=== PATIENT | male | born 1980 | race American Indian/Alaskan Native ===

== ENCOUNTER 2018-07-23 21:56 | Inpatient (IN) | payer OTHER ==
[2018-07-23 22:04] VITALS: BMI 29.7
[2018-07-23] MEDS ORDERED: Sodium Chloride 0.9% 1,000 ML IV STA (22:46)
--- NOTE | 2018-07-23 23:14 | ED PDOC ---
HPI: Abdomen Time Seen by Provider: 07/23/18 22:11 Chief Complaint (Nursing): Abdominal Pain Chief Complaint (Provider): Abdominal Pain History Per: Patient History/Exam Limitations: no limitations Onset/Duration Of Symptoms: Days (x1) Current Symptoms Are (Timing): Still Present Location Of Pain/Discomfort: RLQ Associated Symptoms: Vomiting. denies: Diarrhea Additional Complaint(s): Nuno Medina is a 37 year old male with a past medical history of hypertension who is presenting to the ED for evaluation of abdominal pain, onset earlier today. Patient states that he was evaluated by Dr. Norton at [facility] and was clinically diagnosed with gastritis. He reports that he was prescribed Percocet and Pantoprazole with no relief of symptoms. Patient describes the pain as sharp and constant with associated poor appetite and two episodes of vomiting but denies any diarrhea. PMD: Demetrio Garnett Past Medical History Reviewed: Historical Data, Nursing Documentation, Vital Signs Vital Signs: Last Vital Signs Temp 98.4 F 07/23/18 22:04 Pulse 64 07/23/18 22:04 Resp 16 07/23/18 22:04 BP 148/91 H 07/23/18 22:04 Pulse Ox 97 07/23/18 23:14 - Medical History PMH: HTN - Surgical History Surgical History: No Surg Hx - Family History Family History: States: CAD (mother) - Social History Current smoker - smoking cessation education provided: No Alcohol: None Drugs: Denies - Home Medications Home Medications: Ambulatory Orders Medication Instructions Recorded No Known Home Med 07/24/18 - Allergies Allergies/Adverse Reactions: Allergies Allergy/AdvReac Type Severity Reaction Status Date / Time No Known Allergies Allergy Verified 07/23/18 22:04 Review of Systems ROS Statement: Except As Marked, All Systems Reviewed And Found Negative Gastrointestinal: Positive for: Vomiting, Abdominal Pain. Negative for: Diarrhea Physical Exam - Reviewed Nursing Documentation Reviewed: Yes Vital Signs Reviewed: Yes - Physical Exam Appears: Positive for: Non-toxic, No Acute Distress Head Exam: Positive for: ATRAUMATIC, NORMAL INSPECTION, NORMOCEPHALIC Skin: Positive for: Normal Color, Warm, DRY Eye Exam: Positive for: EOMI, Normal appearance, PERRL ENT: Positive for: Normal ENT Inspection Neck: Positive for: Normal, Painless ROM Cardiovascular/Chest: Positive for: Regular Rate, Rhythm. Negative for: Murmur Respiratory: Positive for: Normal Breath Sounds. Negative for: Respiratory Distress Gastrointestinal/Abdominal: Positive for: Soft, Tenderness (right lower quadrant ). Negative for: Mass, Guarding, Rebound Back: Positive for: Normal Inspection. Negative for: L CVA Tenderness, R CVA Tenderness, Vertebral Tenderness Extremity: Positive for: Normal ROM. Negative for: Deformity, Swelling Neurologic/Psych: Positive for: Alert, Oriented. Negative for: Motor/Sensory Deficits - Laboratory Results Result Diagrams: 07/23/18 23:10 07/23/18 23:10 - ECG O2 Sat by Pulse Oximetry: 97 (RA) Pulse Ox Interpretation: Normal Medical Decision Making Medical Decision Making: Time: 22:43 Impression: 37 year old male with right lower quadrant tenderness Plan: --CT Abd/Pelvis --EKG --CMP --Lipase --ED Urine Dipstick --CBC --IV Fluids --Toradol 30 mg IVP --Blood Culture CT Abd/Pelvis: FINDINGS: Lung bases: Unremarkable. No mass. No consolidation. ABDOMEN: Liver: Unremarkable. No mass. Gallbladder and bile ducts: Unremarkable. No calcified stones. No ductal dilation. Pancreas: Unremarkable. No mass. No ductal dilation. Spleen: Unremarkable. No splenomegaly. Adrenals: Unremarkable. No mass. Kidneys and ureters: Unremarkable. No solid mass. No hydronephrosis. Stomach and bowel: Moderate amount of formed fecal material is seen within the large bowel loops which may be associated with constipation. No mucosal thickening. PELVIS: Appendix: There is enlargement up to 13 mm and peripheral enhancement of the mid to distal appendix with periappendiceal fat stranding present. A 6 x 7 mm appendicolith is seen within the mid appendix. Bladder: Unremarkable. No mass. Reproductive: Unremarkable as visualized. ABDOMEN and PELVIS: Intraperitoneal space: Unremarkable. No free air. No significant fluid collection. Bones/joints: No acute fracture. No dislocation. Soft tissues: Unremarkable. Vasculature: Unremarkable. No abdominal aortic aneurysm. Lymph nodes: Unremarkable. No enlarged lymph nodes. IMPRESSION: Acute appendicitis as described above. Patient will be admitted for further treatment of acute appendicitis. Efrne Sol made aware of case. Dr. Davis agrees to admission and surgical supply assistant made aware. Scribe Attestation: Documented by Indu Ledezma, acting as a scribe for Billy Damon MD. Provider Scribe Attestation: All medical record entries made by the Scribe were at my direction and personally dictated by me. I have reviewed the chart and agree that the record accurately reflects my personal performance of the history, physical exam, medical decision making, and the department course for this patient. I have also personally directed, reviewed, and agree with the discharge instructions and disposition. Disposition - Clinical Impression Clinical Impression: Acute appendicitis - Patient ED Disposition Is Patient to be Admitted: Yes - Disposition Disposition Time: 01:45 Condition: FAIR Forms: [employer] (Portuguese)
[2018-07-23 23:27] LABS: BASO # 0.1 K/uL (0.0-0.2); BASO % 0.5 % (0.0-2.0); EOS % 0.1 % (0.0-4.0); HEMOGLOBIN 13.9 g/dL (12.0-18.0); LYMPH # 1.5 K/uL (1.0-4.3); MEAN CELL VOLUME 83.4 fl (80.0-94.0); MEAN CORPUSCULAR HEMOGLOBIN 27.4 pg (27.0-31.0); MEAN CORPUSCULAR HGB CONC 32.9 g/dL (33.0-37.0); MONO # 0.7 K/uL (0.0-0.8); MONO % 5.4 % (0.0-10.0); NRBC % 0.1 % (0.0-0.0); RBC 5.07 Mil/uL (4.40-5.90); RED CELL DISTRIBUTION WIDTH 13.3 % (11.5-14.5); WHITE BLOOD COUNT 12.1 K/uL (4.8-10.8)
[2018-07-23 23:33] LABS: ALB/GLOB RATIO 1.7 (1.0-2.1); ALBUMIN 4.7 g/dL (3.5-5.0); ALT/SGPT 34 U/L (21-72); AST/SGOT 31 U/L (17-59); BLOOD UREA NITROGEN 14 mg/dl (9-20); CALCIUM 9.5 mg/dL (8.4-10.2); GFR NON-AFRICAN AMERICAN > 60; LIPASE 54 U/L (23-300)
[2018-07-23] MEDS ORDERED: Iohexol 300 100 ML IJ ONE (23:48)
[2018-07-23] MEDS ORDERED: Sodium Chloride 0.9% 50 ML IV ONE (23:49)
[2018-07-24] MEDS ORDERED: Piperacillin/Tazobact 3.375 GM in Sodium Chloride 0.9% 100 ML IV STA (01:05)
--- NOTE | 2018-07-24 02:17 | CP.PCM.CON ---
<Antoni Davis - Last Filed: 07/24/18 02:05> History of Present Illness - History of Present Illness History of Present Illness: General Surgery Consult Re: Appendicitis HPI: 37M presented to ED with sharp, constant abdominal pain that began at 9 AM on 07/23/18 in the periumbilical/epigastric area and migrated to his RLQ. Reports nausea and non-bloody emesis x 2, chills, and decreased appetite. Pt went to Dr. Norton at [facility] and was diagnosed with gastritis and prescribed Percocet and Pantoprazole. Denies fever, headache, dizziness, diarrhea, dysuria. Last BM this AM PMH: Denies PSH: Denies SH: No tobacco, social EtOH, no drug use. FH: non-contributory All: NKDA Meds: Denies PMD: Dr. Garnett Review of Systems - Review of Systems All systems: reviewed and no additional remarkable complaints except (as per HPI ) Past Patient History - Past Social History Alcohol: None Drugs: Denies - CARDIAC Hx Hypertension: Yes - GASTROINTESTINAL Hx Gastrointestinal Disorders: Yes Hx Gastritis: Yes - PSYCHIATRIC Hx Substance Use: No Meds Allergies/Adverse Reactions: Allergies Allergy/AdvReac Type Severity Reaction Status Date / Time No Known Allergies Allergy Verified 07/23/18 22:04 - Medications Medications: Current Medications Piperacillin Sod/Tazobactam (Sod 3.375 gm/ Sodium Chloride) 100 mls @ 100 mls/ hr IVPB Q6 JULIANNE PRN Reason: Protocol Lactated Ringer's (Lactated Ringer's) 1,000 mls @ 120 mls/hr IV .Q8H20M JULIANNE Morphine Sulfate (Morphine) 4 mg IVP Q4 PRN PRN Reason: Pain, moderate (4-7) Ondansetron HCl (Zofran Inj) 4 mg IVP Q4 PRN PRN Reason: Nausea/Vomiting Physical Exam - Constitutional Appears: Non-toxic, No Acute Distress - Head Exam Head Exam: ATRAUMATIC, NORMOCEPHALIC - Eye Exam Eye Exam: EOMI. absent: Scleral icterus - ENT Exam ENT Exam: Mucous Membranes Dry Additional comments: trachea midline - Neck Exam Neck exam: Positive for: Full Rom - Respiratory Exam Respiratory Exam: NORMAL BREATHING PATTERN. absent: Respiratory Distress - Cardiovascular Exam Cardiovascular Exam: RRR, +S1, +S2 - GI/Abdominal Exam GI & Abdominal Exam: Soft, Tenderness (in RLQ). absent: Distended, Firm, Guarding, Rebound, Rigid - Rectal Exam Rectal Exam: Deferred - Extremities Exam Extremities exam: Positive for: normal capillary refill, pedal pulses present. Negative for: calf tenderness, pedal edema - Back Exam Back exam: absent: CVA tenderness (L), CVA tenderness (R) - Neurological Exam Neurological exam: Alert, Oriented x3 - Skin Skin Exam: Dry, Warm Results - Vital Signs Recent Vital Signs: Last Vital Signs Temp 98.4 F 07/23/18 22:04 Pulse 64 07/23/18 22:04 Resp 16 07/23/18 22:04 BP 148/91 H 07/23/18 22:04 Pulse Ox 97 07/24/18 01:47 - Labs Result Diagrams: 07/23/18 23:10 07/23/18 23:10 Labs: Laboratory Results - last 24 hr 07/23/18 07/23/18 23:10 23:10 WBC 12.1 H RBC 5.07 Hgb 13.9 Hct 42.3 MCV 83.4 MCH 27.4 MCHC 32.9 L RDW 13.3 Plt Count 243 MPV 9.0 Neut % (Auto) 82.0 H Lymph % (Auto) 12.0 L [place] % (Auto) 5.4 Eos % (Auto) 0.1 Baso % (Auto) 0.5 Neut # (Auto) 10.0 H Lymph # (Auto) 1.5 [place] # (Auto) 0.7 Eos # (Auto) 0.0 Baso # (Auto) 0.1 Sodium 139 Potassium 3.9 Chloride 103 Carbon Dioxide 27 Anion Gap 13 BUN 14 Creatinine 0.8 Est GFR ( Amer) > 60 Est GFR (Non-Af Amer) > 60 Random Glucose 105 Calcium 9.5 Total Bilirubin 1.4 H AST 31 ALT 34 Alkaline Phosphatase 63 Total Protein 7.4 Albumin 4.7 Globulin 2.8 Albumin/Globulin Ratio 1.7 Lipase 54 - Imaging and Cardiology CT scan - abdomen Status: Image reviewed by me (~14mm dilated appendiceal tip with periappendiceal inflammation) Assessment & Plan - Assessment and Plan (Free Text) Assessment: 37M with acute appendicitis Plan: NPO IVF Zofran PRN Analgesia PRN OR later today as add on, consent in chart. D/W Dr. Kareem Davis PGY4 <Ricardo Serna - Last Filed: 07/24/18 15:47> History of Present Illness - History of Present Illness History of Present Illness: Patient was seen and examined at the bedside. Agree with resident's note above. Meds - Medications Medications: Current Medications Acetaminophen (Tylenol 650 Mg Supp) 650 mg VT Q4 PRN PRN Reason: Fever >100.4 F Last Admin: 07/24/18 09:49 Dose: 650 mg Hydromorphone HCl (Dilaudid) 0.5 mg IVP Q5M PRN PRN Reason: Pain, moderate (4-7) Stop: 07/24/18 16:59 Lactated Ringer's (Lactated Ringer's) 1,000 mls @ 120 mls/hr IV .Q8H20M JULIANNE Last Admin: 07/24/18 13:14 Dose: 120 mls/hr Piperacillin Sod/Tazobactam (Sod 3.375 gm/ Sodium Chloride) 100 mls @ 100 mls/ hr IVPB Q6H JULIANNE PRN Reason: Protocol Last Admin: 07/24/18 14:07 Dose: Not Given Morphine Sulfate (Morphine) 4 mg IVP Q4 PRN PRN Reason: Pain, severe (8-10) Ondansetron HCl (Zofran Inj) 4 mg IVP Q4 PRN PRN Reason: Nausea/Vomiting Last Admin: 07/24/18 08:29 Dose: 4 mg Oxycodone/Acetaminophen (Percocet 5/325 Mg Tab) 1 tab PO Q4 PRN PRN Reason: Pain, Mild (1-3) Stop: 07/27/18 14:57 Oxycodone/Acetaminophen (Percocet 5/325 Mg Tab) 2 tab PO Q4 PRN PRN Reason: Pain, moderate (4-7) Stop: 07/27/18 14:57 Results - Vital Signs Recent Vital Signs: Last Vital Signs Temp 98.8 F 07/24/18 13:23 Pulse 89 07/24/18 09:37 Resp 17 07/24/18 09:37 BP 125/68 07/24/18 09:37 Pulse Ox 98 07/24/18 09:37 - Labs Result Diagrams: 07/23/18 23:10 07/23/18 23:10 Labs: Laboratory Results - last 24 hr 07/23/18 07/23/18 07/24/18 23:10 23:10 05:25 WBC 12.1 H RBC 5.07 Hgb 13.9 Hct 42.3 MCV 83.4 MCH 27.4 MCHC 32.9 L RDW 13.3 Plt Count 243 MPV 9.0 Neut % (Auto) 82.0 H Lymph % (Auto) 12.0 L [place] % (Auto) 5.4 Eos % (Auto) 0.1 Baso % (Auto) 0.5 Neut # (Auto) 10.0 H Lymph # (Auto) 1.5 [place] # (Auto) 0.7 Eos # (Auto) 0.0 Baso # (Auto) 0.1 PT 12.5 INR 1.1 APTT 35.0 Sodium 139 Potassium 3.9 Chloride 103 Carbon Dioxide 27 Anion Gap 13 BUN 14 Creatinine 0.8 Est GFR ( Amer) > 60 Est GFR (Non-Af Amer) > 60 Random Glucose 105 Calcium 9.5 Total Bilirubin 1.4 H AST 31 ALT 34 Alkaline Phosphatase 63 Total Protein 7.4 Albumin 4.7 Globulin 2.8 Albumin/Globulin Ratio 1.7 Lipase 54
[2018-07-24] MEDS ORDERED: Morphine 4 MG/ML VIAL ONE (02:20)
[2018-07-24] MEDS: Lactated Ringer's 1,000 ML IV SCH ×4 (02:21→19:30)
[2018-07-24] MEDS ORDERED: Piperacillin/Tazobact 3.375 GM in Sodium Chloride 0.9% 100 ML IVPB SCH (04:00)
[2018-07-24 06:25] LABS: INR 1.1; PROTHROMBIN TIME 12.5 Seconds (9.8-13.1)
[2018-07-24] MEDS: Piperacillin/Tazobact 3.375 GM in Sodium Chloride 0.9% 100 ML IVPB SCH ×4 (08:25→21:00)
--- NOTE | 2018-07-24 09:09 | CARD ---
APPROVED REPORT Date of service: 07/23/2018 EKG Measurement Heart [id number] <Conclusion> Sinus bradycardia Otherwise normal ECG
[2018-07-24] MEDS ORDERED: Chlorhexidine Gluconate 1 APPL/PKT TP ONE (09:49)
--- NOTE | 2018-07-24 11:11 | CT ---
Date of service: 07/24/2018 PROCEDURE: CT Abdomen and Pelvis with contrast HISTORY: RLQ pain COMPARISON: None. TECHNIQUE: Contrast dose: 90 mL Omnipaque 300 Radiation dose: Total exam DLP = 370.53 mGy-cm. This CT exam was performed using one or more of the following dose reduction techniques: Automated exposure control, adjustment of the mA and/or kV according to patient size, and/or use of iterative reconstruction technique. FINDINGS: LOWER THORAX: Unremarkable. LIVER: Unremarkable. No gross lesion or ductal dilatation. GALLBLADDER AND BILE DUCTS: Unremarkable. PANCREAS: Unremarkable. No gross lesion or ductal dilatation. SPLEEN: Unremarkable. ADRENALS: Unremarkable. No mass. KIDNEYS AND URETERS: Unremarkable. No hydronephrosis. No solid mass. VASCULATURE: Unremarkable. No aortic aneurysm. BOWEL: Unremarkable. No obstruction. No gross mural thickening. APPENDIX: There is an 8 mm appendicolith in the mid appendix with distention of the distal portion of the appendix to a diameter of approximately 12 mm. There is extensive periappendiceal inflammatory change but no periappendiceal abscess or free air. Findings consistent with acute distal appendicitis or tip appendicitis. PERITONEUM: Trace fluid in right pericolic gutter and pelvis. LYMPH NODES: Unremarkable. No enlarged lymph nodes. BLADDER: Poorly distended. Grossly unremarkable. REPRODUCTIVE: Normal prostate BONES: No acute fracture. OTHER FINDINGS: None. IMPRESSION: Findings consistent with acute distal appendicitis. No periappendiceal abscess or evidence of free intraperitoneal air. The preliminary findings for this examination were reported by [employer] at 10:07 a.m. on 07/24/2018. There is concurrence of this report with the preliminary findings.
--- NOTE | 2018-07-24 12:42 | CP.PCM.HP ---
History of Present Illness - History of Present Illness History of Present Illness: Nuno Medina is a 37 year old male with a past medical history of hypertension who is presenting to the ED for evaluation of abdominal pain, onset earlier today. Patient states that he was evaluated by Dr. Norton at [facility] and was clinically diagnosed with gastritis. He reports that he was prescribed Percocet and Pantoprazole with no relief of symptoms. Patient describes the pain as sharp and constant with associated poor appetite and two episodes of vomiting but denies any diarrhea. Present on Admission - Present on Admission Any Indicators Present on Admission: No Review of Systems - Constitutional Constitutional: As Per HPI - Cardiovascular Cardiovascular: absent: As Per HPI, Acrocyanosis, Chest Pain, Chest Pain at Rest , Chest Pain with Activity, Claudication, Diaphoresis, Dyspnea, Dyspnea on Exertion, Edema, Irregular Heart Rhythm, Pain Radiating to Arm/Neck/Jaw, Leg Edema, Leg Ulcers, Lightheadedness, Orthopnea, Palpitations, Paroxysmal Nocturnal Dyspnea, Pedal Edema, Radiating Pain, Rapid Heart Rate, Slow Heart Rate, Syncope, Other - Respiratory Respiratory: absent: As Per HPI, Cough, Dyspnea, Hemoptysis, Dyspnea on Exertion , Wheezing, Snoring, Stridor, Pain on Inspiration, Chest Congestion, Excessive Mucous Production, Change in Mucous Color, Pain with Coughing, Other - Gastrointestinal Gastrointestinal: Abdominal Pain, Diarrhea - Musculoskeletal Musculoskeletal: absent: As Per HPI, Abnormal Gait, Arthralgias, Atrophy, Back Pain, Deformity, Joint Swelling, Limited Range of Motion, Loss of Height, Muscle Cramps, Muscle Weakness, Myalgias, Neck Pain, Numbness, Radiating Pain into Limb, Stiffness, Tingling, Other - Integumentary Integumentary: absent: As Per HPI, Acne, Alopecia, Bleeding Lesions, Change in Hair, Change in Nails, Change in Pigmentation, Changing Lesions, Dry Skin, Erythema, Furuncle, Hirsutism, Lesions, New Lesions, Non-Healing Lesions, Photosensitivity, Pruritus, Rash, Skin Pain, Skin Ulcer, Sores, Striae, Swelling , Unusual Bruising, Wounds, Jaundice, Other - Neurological Neurological: absent: As Per HPI, Abnormal Gait, Abnormal Hearing, Abnormal Movements, Abnormal Speech, Behavioral Changes, Burning Sensations, Confusion, Convulsions, Disequilibrium, Dizziness, Numbness, Focal Weakness, Frequent Falls , Headaches, Lack of Coordination, Loss of Vision, Memory Loss, Paresthesias, Radicular Pain, Restless Legs, Sensory Deficit, Syncope, Tingling, Tremor, Vertigo, Weakness, Other Visual Disturbances, Other Past Patient History - Past Medical History & Family History Past Medical History?: Yes - Past Social History Smoking Status: Former Smoker - CARDIAC Hx Cardiac Disorders: Yes Hx Hypertension: Yes - MUSCULOSKELETAL/RHEUMATOLOGICAL Hx Falls: No - GASTROINTESTINAL Hx Gastrointestinal Disorders: Yes Hx Gastritis: Yes - PSYCHIATRIC Hx Substance Use: No - ANESTHESIA Hx Anesthesia: No Hx Anesthesia Reactions: No Meds Allergies/Adverse Reactions: Allergies Allergy/AdvReac Type Severity Reaction Status Date / Time No Known Allergies Allergy Verified 07/23/18 22:04 Physical Exam - Head Exam Head Exam: ATRAUMATIC, NORMAL INSPECTION - Eye Exam Pupil Exam: NORMAL ACCOMODATION - ENT Exam ENT Exam: Mucous Membranes Moist - Neck Exam Neck exam: Positive for: Normal Inspection - Respiratory Exam Respiratory Exam: Clear to Auscultation Bilateral, NORMAL BREATHING PATTERN - Cardiovascular Exam Cardiovascular Exam: REGULAR RHYTHM - GI/Abdominal Exam Additional comments: pos tenderness RLQ - Extremities Exam Extremities exam: Negative for: calf tenderness, full ROM, joint swelling, normal capillary refill, normal inspection, pedal edema, tenderness, pedal pulses present Results - Vital Signs Recent Vital Signs: Last Vital Signs Temp 99.3 F 07/24/18 10:52 Pulse 89 07/24/18 09:37 Resp 17 07/24/18 09:37 BP 125/68 07/24/18 09:37 Pulse Ox 98 07/24/18 09:37 - Labs Result Diagrams: 07/23/18 23:10 07/23/18 23:10 Labs: Laboratory Results - last 24 hr 07/23/18 07/23/18 07/24/18 23:10 23:10 05:25 WBC 12.1 H RBC 5.07 Hgb 13.9 Hct 42.3 MCV 83.4 MCH 27.4 MCHC 32.9 L RDW 13.3 Plt Count 243 MPV 9.0 Neut % (Auto) 82.0 H Lymph % (Auto) 12.0 L [place] % (Auto) 5.4 Eos % (Auto) 0.1 Baso % (Auto) 0.5 Neut # (Auto) 10.0 H Lymph # (Auto) 1.5 [place] # (Auto) 0.7 Eos # (Auto) 0.0 Baso # (Auto) 0.1 PT 12.5 INR 1.1 APTT 35.0 Sodium 139 Potassium 3.9 Chloride 103 Carbon Dioxide 27 Anion Gap 13 BUN 14 Creatinine 0.8 Est GFR ( Amer) > 60 Est GFR (Non-Af Amer) > 60 Random Glucose 105 Calcium 9.5 Total Bilirubin 1.4 H AST 31 ALT 34 Alkaline Phosphatase 63 Total Protein 7.4 Albumin 4.7 Globulin 2.8 Albumin/Globulin Ratio 1.7 Lipase 54 Assessment & Plan - Assessment and Plan (Free Text) Assessment: 1. Appendicitis surgery today at 1 pm cont to monitor pain meds
[2018-07-24] MEDS ORDERED: Propofol 10 mg/ml Inj (20 ML) ONE (13:27)
[2018-07-24] MEDS ORDERED: Midazolam 2 MG/2 ML VIAL ONE (13:27)
[2018-07-24] MEDS ORDERED: Rocuronium 10 mg/ml (5 ml) ONE (13:28)
[2018-07-24] MEDS ORDERED: Succinylcholine 200 mg/10 ml Inj IV ONE (13:28)
[2018-07-24] MEDS ORDERED: Bupivacaine HCl 0.25% PF (30 ml) Inj ONE (13:34)
[2018-07-24] MEDS ORDERED: ceFAZolin IV 2 gm in Dextrose 2 GM/50 ML BAG IVPB ONE (13:35)
[2018-07-24] MEDS ORDERED: Lactated Ringer's 1,000 ML IV ONE ×2 (13:40→16:16)
[2018-07-24] MEDS ORDERED: Bupivacaine 0.25% Inj(30mL) IJ ONE ×2 (14:25→14:42)
[2018-07-24] MEDS ORDERED: Neostigmine 1:1000 (1 mg/ml) Inj ONE (14:43)
--- NOTE | 2018-07-24 14:55 | PCM.SURG1 ---
Surgeon's Initial Post Op Note - Surgeon's Notes Surgeon: Dr. Ricardo Serna Cable Dispatcher: Jacklyn Carter, PGY-2 Type of Anesthesia: General Endo Anesthesia Administered By: Dr Borjas Pre-Operative Diagnosis: Acute appendictis Operative Findings: See op report Post-Operative Diagnosis: Acute non perforated appendicitis Operation Performed: Laparoscopic appendectomy Specimen/Specimens Removed: Appendix Estimated Blood Loss: EBL {In ML}: 2 Blood Products Given: N/A Drains Used: No Drains Post-Op Condition: Good Date of Surgery/Procedure: 07/24/18 Time of Surgery/Procedure: 14:55
[2018-07-24] MEDS ORDERED: HYDROmorphone 0.5 mg/0.5 ml ISec IVP PRN (14:59)
[2018-07-24] MEDS ORDERED: Lactated Ringer's 1,000 ML IV SCH (18:58)
[2018-07-24 19:10] LABS: HEMOGLOBIN 12.5 g/dL (12.0-18.0); MEAN CELL VOLUME 84.1 fl (80.0-94.0); MEAN CORPUSCULAR HEMOGLOBIN 27.7 pg (27.0-31.0); RBC 4.51 Mil/uL (4.40-5.90); RED CELL DISTRIBUTION WIDTH 13.4 % (11.5-14.5); WHITE BLOOD COUNT 11.5 K/uL (4.8-10.8)
[2018-07-24] MEDS: Oxycodone/Acetaminophen 5/325 mg Tab PO PRN (22:16)
[2018-07-25] MEDS: Piperacillin/Tazobact 3.375 GM in Sodium Chloride 0.9% 100 ML IVPB SCH ×4 (02:10→21:00)
[2018-07-25] MEDS: Lactated Ringer's 1,000 ML IV SCH ×2 (04:00→07:29)
[2018-07-25] MEDS: Oxycodone/Acetaminophen 5/325 mg Tab PO PRN ×6 (04:03→20:50)
[2018-07-25 06:16] LABS: BASO % 0.3 % (0.0-2.0); HEMOGLOBIN 12.6 g/dL (12.0-18.0); LYMPH # 0.4 K/uL (1.0-4.3); MEAN CELL VOLUME 83.6 fl (80.0-94.0); MEAN CORPUSCULAR HGB CONC 33.5 g/dL (33.0-37.0); MEAN PLATELET VOLUME 8.9 fl (7.2-11.7); MONO # 0.4 K/uL (0.0-0.8); MONO % 5.6 % (0.0-10.0); NEUT # 6.5 K/uL (1.8-7.0); NEUT % 88.1 % (50.0-75.0); PLATELET COUNT 190 K/uL (130-400); RBC 4.48 Mil/uL (4.40-5.90); RED CELL DISTRIBUTION WIDTH 13.6 % (11.5-14.5); WHITE BLOOD COUNT 7.4 K/uL (4.8-10.8)
[2018-07-25 06:27] LABS: ALB/GLOB RATIO 1.5 (1.0-2.1); ALBUMIN 3.9 g/dL (3.5-5.0); ALT/SGPT 33 U/L (21-72); AST/SGOT 36 U/L (17-59); BLOOD UREA NITROGEN 10 mg/dl (9-20); CALCIUM 8.7 mg/dL (8.4-10.2); GFR NON-AFRICAN AMERICAN > 60
--- NOTE | 2018-07-25 07:49 | OP ---
Copied To: Ricardo Serna MD Attending MD: Ricardo Serna MD PROCEDURE DATE: 07/24/18 PREOPERATIVE DIAGNOSIS: Acute appendicitis. POSTOPERATIVE DIAGNOSIS: Acute appendicitis. PROCEDURE: Laparoscopic appendectomy. SURGEON: Ricardo Serna MD. SKEIN WINDING OPERATOR: Emma. DOMESTIC VIOLENCE ADVOCATE: Thomas Borjas MD TYPE OF ANESTHESIA: General endotracheal intubation. IV FLUIDS: Crystalloids. ESTIMATED BLOOD LOSS: 5 mL. INTRAOPERATIVE FINDINGS: Acute appendicitis. SPECIMEN: Appendix. BRIEF HISTORY: Mr. Medina is a very pleasant 37-year-old gentleman who presented to the hospital complaining of right lower quadrant abdominal pain. Upon further investigation on the CAT scan, the patient was found to have elevated white blood count to 12 as well as CAT findings significant for acute appendicitis. All the risks and benefits of the procedure were explained to the patient; and with the patient having a full understanding of the all the risks and benefits involved, informed consent was obtained, and the patient was taken to the operating room for above-stated procedure. DESCRIPTION OF PROCEDURE: The patient was brought into the operating room and placed supine on the operating room table. Bilateral Flowtron boots were applied to the patient's lower extremities. After successful induction of anesthesia and successful endotracheal intubation by the anesthesia team, the patient's abdomen was shaved, and subsequent to that, Polanco catheter was inserted into the patient's urinary bladder, and subsequent to that, the patient abdomen was prepped with ChloraPrep stick and draped in a standard surgical fashion. Prior to the beginning of the procedure, time-out was called in the room and everyone in the room were in agreement. The patient received prophylactic 2 g of Ancef antibiotic prior to the incision time. Once this was accomplished, using a Veress needle, the patient's abdomen was entered at the umbilicus. Pneumoperitoneum was achieved with good opening pressures. Once this was accomplished, using a 11-blade scalpel knife, approximately 5-mm incision was made in the umbilicus in the longitudinal fashion, and subsequent to that, 5-mm trocar was introduced into the patient's abdomen. At this point in time, a 5-mm 0-degree scope was introduced into the patient's abdomen, and the abdomen was inspected. We immediately were able to visualize inflammatory changes in the right lower quadrant of the patient's abdomen. Then, attention was turned to the lower mid abdomen. Using 11-blade scalpel knife, approximately 5-mm incision was made in a transverse fashion. Subsequent to that, a 5-mm trocar was introduced into the patient's abdomen. Then attention was turned to the left lower quadrant of the patient's abdomen, using 11-blade scalpel knife, approximately 1-cm incision was made in a transverse fashion. Subsequent to that, a 12-mm trocar was introduced into the patient's abdomen. At this point in time, using two Jairo and Geraquel graspers, appendix was mobilized, and subsequent to that, using [place] dissector, the window was created between the appendix and the mesoappendix. Once this was accomplished, the appendix was taken right at the base next to the cecum with a blue load 45-mm Endo RAZIA stapler, and subsequent to that, mesoappendix was taken with 45-mm gutierrez load Endo RAZIA stapler. Once the appendix was completely freed up, EndoCatch bag was introduced into the patient's abdomen. Appendix was placed inside of the bag, and the bag was closed. At this point in time, staple line was inspected for hemostasis. Hemostasis was confirmed. At this point in time, 12 mm trocar together with EndoCatch bag and appendix were removed from the patient's abdomen and passed off to the [facility] as a specimen. Fascial layer at the 12-mm trocar site was closed with one interrupted 0 Vicryl suture and UR-6 needle. Subsequent to that, the patient's abdomen was fully desufflated. The rest of the trocars were removed from the patient's abdomen. The skin was closed with a 4-0 Monocryl suture in a running subcuticular fashion. At the end of the procedure, incision sites were infiltrated with Marcaine anesthetic. The patient's abdomen was washed and dried. Dermabond was applied to the site of the incisions. The patient was successfully extubated by the anesthesia team, transferred to a stretcher. Polanco catheter was removed from the patient urinary bladder and the patient was taken to the recovery room in a stable condition. At the end of the procedure, all instrument counts, needles, and sponges were correct. Ricardo Serna MD [facility] # [id number]
--- NOTE | 2018-07-25 08:18 | CP.PCM.PN ---
Subjective - Date & Time of Evaluation Date of Evaluation: 07/25/18 Time of Evaluation: 08:17 - Subjective Subjective: General surgery progress note for Dr. Vijay Carter, PGY-2 Pt S & E at bedside at 0700 Pt reports fevers overnight, Tmax 101.4. Reports voiding, tolerating clears, passing flatus. Is up and ambulating. Using IS. Denies N & V. Objective - Vital Signs/Intake and Output Vital Signs (last 24 hours): Temp Pulse Resp BP Pulse Ox 99.8 F H 69 19 137/75 97 07/25/18 07:50 07/25/18 07:50 07/25/18 07:50 07/25/18 07:50 07/25/18 07:50 - Medications Medications: Current Medications Acetaminophen (Tylenol 325mg Tab) 650 mg PO Q4 PRN PRN Reason: Fever >100.4 F Piperacillin Sod/Tazobactam (Sod 3.375 gm/ Sodium Chloride) 100 mls @ 100 mls/ hr IVPB Q6H JULIANNE PRN Reason: Protocol Last Admin: 07/25/18 08:16 Dose: 100 mls/hr Morphine Sulfate (Morphine) 4 mg IVP Q4 PRN PRN Reason: Pain, severe (8-10) Ondansetron HCl (Zofran Inj) 4 mg IVP Q4 PRN PRN Reason: Nausea/Vomiting Last Admin: 07/24/18 08:29 Dose: 4 mg Oxycodone/Acetaminophen (Percocet 5/325 Mg Tab) 1 tab PO Q4 PRN PRN Reason: Pain, Mild (1-3) Stop: 07/27/18 14:57 Last Admin: 07/25/18 04:03 Dose: 1 tab Oxycodone/Acetaminophen (Percocet 5/325 Mg Tab) 2 tab PO Q4 PRN PRN Reason: Pain, moderate (4-7) Stop: 07/27/18 14:57 Last Admin: 07/24/18 22:16 Dose: 2 tab - Labs Labs: 07/25/18 05:30 07/25/18 05:30 PT 12.5 Seconds (9.8-13.1) 07/24/18 05:25 INR 1.1 07/24/18 05:25 APTT 35.0 Seconds (25.6-37.1) 07/24/18 05:25 - Constitutional Appears: Non-toxic, No Acute Distress - Head Exam Head Exam: ATRAUMATIC, NORMAL INSPECTION, NORMOCEPHALIC - Eye Exam Eye Exam: EOMI, Normal appearance - ENT Exam ENT Exam: Mucous Membranes Moist, Normal Exam - Neck Exam Neck Exam: Full ROM, Normal Inspection - Respiratory Exam Respiratory Exam: NORMAL BREATHING PATTERN - Cardiovascular Exam Cardiovascular Exam: REGULAR RHYTHM, +S1, +S2 - GI/Abdominal Exam GI & Abdominal Exam: Soft, Tenderness (over surgical sites). absent: Distended , Firm, Guarding, Hernia, Rebound - Extremities Exam Extremities Exam: Normal Inspection - Neurological Exam Neurological Exam: Alert, Awake, CN II-XII Intact, Oriented x3 - Psychiatric Exam Psychiatric exam: Normal Affect, Normal Mood - Skin Skin Exam: Dry, Intact, Normal Color, Warm Additional comments: Abdominal incisions x 3- umbilicus, suprapubic and LLQ- glue in place, no erythema or drainage Assessment and Plan - Assessment and Plan (Free Text) Assessment: 37M POD#1 s/p lap appy with fevers over last 24H Plan: Monitor VS Ok for regular diet Cont IV Abx Pain control PRN Anti-emetic PRN Encourage IS use Will DW attending Emma, PGY-2
--- NOTE | 2018-07-25 09:03 | CP.PCM.PN ---
Subjective - Date & Time of Evaluation Date of Evaluation: 07/25/18 Time of Evaluation: 09:00 - Subjective Subjective: General Surgery Pt seen and examined this AM. He reports feeling well and just some abdominal pain at incision sites. (+) flatus. Tolerating diet. Febrile with tmax 101.7 overnight. Labs and vitals noted PE Gen: pt laying in bed in NAD Skin: warm and dry Cardio: s1s2 RRR Lungs: CTA bilaterally, (-) rales Abd: Soft, Mild tenderness RLQ, incisions clean dry and intact Extr: (-) calf tenderness bilaterally A/P POD 1 s/p appendectomy Pt febrile, not ready for discharge at this time Regular diet Encourage IS and OOB Objective - Vital Signs/Intake and Output Vital Signs (last 24 hours): Temp Pulse Resp BP Pulse Ox 99.8 F H 69 19 137/75 97 07/25/18 07:50 07/25/18 07:50 07/25/18 07:50 07/25/18 07:50 07/25/18 07:50 - Medications Medications: Current Medications Acetaminophen (Tylenol 325mg Tab) 650 mg PO Q4 PRN PRN Reason: Fever >100.4 F Piperacillin Sod/Tazobactam (Sod 3.375 gm/ Sodium Chloride) 100 mls @ 100 mls/ hr IVPB Q6H JULIANNE PRN Reason: Protocol Last Admin: 07/25/18 08:16 Dose: 100 mls/hr Morphine Sulfate (Morphine) 4 mg IVP Q4 PRN PRN Reason: Pain, severe (8-10) Ondansetron HCl (Zofran Inj) 4 mg IVP Q4 PRN PRN Reason: Nausea/Vomiting Last Admin: 07/24/18 08:29 Dose: 4 mg Oxycodone/Acetaminophen (Percocet 5/325 Mg Tab) 1 tab PO Q4 PRN PRN Reason: Pain, Mild (1-3) Stop: 07/27/18 14:57 Last Admin: 07/25/18 04:03 Dose: 1 tab Oxycodone/Acetaminophen (Percocet 5/325 Mg Tab) 2 tab PO Q4 PRN PRN Reason: Pain, moderate (4-7) Stop: 07/27/18 14:57 Last Admin: 07/25/18 08:17 Dose: 2 tab - Labs Labs: 07/25/18 05:30 07/25/18 05:30 PT 12.5 Seconds (9.8-13.1) 07/24/18 05:25 INR 1.1 07/24/18 05:25 APTT 35.0 Seconds (25.6-37.1) 07/24/18 05:25
[2018-07-25 10:19] LABS: LYMPHOCYTE 7 % (20-50); MONOCYTE 6 % (0-10); NEUTROPHIL 87 % (42-75); PLATELET ESTIMATE NORMAL (NORMAL); TOTAL CELLS COUNTED 100
[2018-07-25 10:20] LABS: LARGE PLATELETS PRESENT; TOXIC GRANULATION PRESENT
--- NOTE | 2018-07-25 14:01 | CP.PCM.PN ---
Subjective - Date & Time of Evaluation Date of Evaluation: 07/25/18 Time of Evaluation: 11:00 - Subjective Subjective: pt s/p appendectomy day one, febrile overnight, tolerating po. no other complaints Objective - Vital Signs/Intake and Output Vital Signs (last 24 hours): Temp Pulse Resp BP Pulse Ox 98.2 F 69 19 137/75 97 07/25/18 11:26 07/25/18 07:50 07/25/18 07:50 07/25/18 07:50 07/25/18 07:50 - Medications Medications: Current Medications Acetaminophen (Tylenol 325mg Tab) 650 mg PO Q4 PRN PRN Reason: Fever >100.4 F Piperacillin Sod/Tazobactam (Sod 3.375 gm/ Sodium Chloride) 100 mls @ 100 mls/ hr IVPB Q6H JULIANNE PRN Reason: Protocol Last Admin: 07/25/18 08:16 Dose: 100 mls/hr Morphine Sulfate (Morphine) 4 mg IVP Q4 PRN PRN Reason: Pain, severe (8-10) Ondansetron HCl (Zofran Inj) 4 mg IVP Q4 PRN PRN Reason: Nausea/Vomiting Last Admin: 07/24/18 08:29 Dose: 4 mg Oxycodone/Acetaminophen (Percocet 5/325 Mg Tab) 1 tab PO Q4 PRN PRN Reason: Pain, Mild (1-3) Stop: 07/27/18 14:57 Last Admin: 07/25/18 04:03 Dose: 1 tab Oxycodone/Acetaminophen (Percocet 5/325 Mg Tab) 2 tab PO Q4 PRN PRN Reason: Pain, moderate (4-7) Stop: 07/27/18 14:57 Last Admin: 07/25/18 12:18 Dose: 2 tab - Labs Labs: 07/25/18 05:30 07/25/18 05:30 PT 12.5 Seconds (9.8-13.1) 07/24/18 05:25 INR 1.1 07/24/18 05:25 APTT 35.0 Seconds (25.6-37.1) 07/24/18 05:25 - Head Exam Head Exam: ATRAUMATIC, NORMAL INSPECTION - Eye Exam Eye Exam: Normal appearance Pupil Exam: NORMAL ACCOMODATION - ENT Exam ENT Exam: Mucous Membranes Moist - Neck Exam Neck Exam: Normal Inspection - Respiratory Exam Respiratory Exam: Clear to Ausculation Bilateral - Cardiovascular Exam Cardiovascular Exam: REGULAR RHYTHM - GI/Abdominal Exam GI & Abdominal Exam: Soft, Normal Bowel Sounds - Rectal Exam Rectal Exam: NORMAL INSPECTION - Neurological Exam Neurological Exam: Alert Assessment and Plan - Assessment and Plan (Free Text) Assessment: 1. s/p appendectomy day 1 pt febrile overnight cont zosyn tolerating po will continue to monitor tylenol
[2018-07-26] MEDS: Piperacillin/Tazobact 3.375 GM in Sodium Chloride 0.9% 100 ML IVPB SCH ×2 (02:19→08:46)
--- NOTE | 2018-07-26 06:54 | CP.PCM.PN ---
Subjective - Date & Time of Evaluation Date of Evaluation: 07/26/18 Time of Evaluation: 07:51 - Subjective Subjective: General surgery progress note for Dr. Vijay Carter, PGY-2 Pt S & E at bedside at 0655 Pt reports abdominal pain much improved. Had BM this AM. Denies N & V, F & C. Is tolerating diet. Ambulating. Would like to go home. Objective - Vital Signs/Intake and Output Vital Signs (last 24 hours): Temp Pulse Resp BP Pulse Ox 98.7 F 63 18 132/78 96 07/25/18 23:50 07/25/18 23:50 07/25/18 23:50 07/25/18 23:50 07/25/18 23:50 - Medications Medications: Current Medications Acetaminophen (Tylenol 325mg Tab) 650 mg PO Q4 PRN PRN Reason: Fever >100.4 F Bisacodyl (Dulcolax) 10 mg SC ONCE ONE Stop: 07/26/18 06:51 Docusate Sodium (Colace) 100 mg PO DAILY PRN PRN Reason: Constipation Piperacillin Sod/Tazobactam (Sod 3.375 gm/ Sodium Chloride) 100 mls @ 100 mls/ hr IVPB Q6H JULIANNE PRN Reason: Protocol Last Admin: 07/26/18 02:19 Dose: 100 mls/hr Morphine Sulfate (Morphine) 4 mg IVP Q4 PRN PRN Reason: Pain, severe (8-10) Ondansetron HCl (Zofran Inj) 4 mg IVP Q4 PRN PRN Reason: Nausea/Vomiting Last Admin: 07/24/18 08:29 Dose: 4 mg Oxycodone/Acetaminophen (Percocet 5/325 Mg Tab) 1 tab PO Q4 PRN PRN Reason: Pain, Mild (1-3) Stop: 07/27/18 14:57 Last Admin: 07/25/18 04:03 Dose: 1 tab Oxycodone/Acetaminophen (Percocet 5/325 Mg Tab) 2 tab PO Q4 PRN PRN Reason: Pain, moderate (4-7) Stop: 07/27/18 14:57 Last Admin: 07/25/18 20:50 Dose: 2 tab - Labs Labs: 07/25/18 05:30 07/25/18 05:30 PT 12.5 Seconds (9.8-13.1) 07/24/18 05:25 INR 1.1 07/24/18 05:25 APTT 35.0 Seconds (25.6-37.1) 07/24/18 05:25 - Constitutional Appears: Non-toxic, No Acute Distress - Head Exam Head Exam: ATRAUMATIC, NORMAL INSPECTION, NORMOCEPHALIC - Eye Exam Eye Exam: EOMI, Normal appearance - ENT Exam ENT Exam: Mucous Membranes Moist, Normal Exam - Neck Exam Neck Exam: Full ROM, Normal Inspection - Respiratory Exam Respiratory Exam: NORMAL BREATHING PATTERN - Cardiovascular Exam Cardiovascular Exam: REGULAR RHYTHM, +S1, +S2 - GI/Abdominal Exam GI & Abdominal Exam: Soft, Tenderness (mild, over incision sites). absent: Distended, Firm, Guarding Additional comments: glue in place over suprapubic, umbilical and LLQ incision sites, mildly tender to palpation, no erythema or drainage, no flucutance or induration - Extremities Exam Extremities Exam: Normal Inspection - Neurological Exam Neurological Exam: Alert, Awake, CN II-XII Intact, Oriented x3 - Psychiatric Exam Psychiatric exam: Normal Affect, Normal Mood - Skin Skin Exam: Dry, Intact, Normal Color, Warm Assessment and Plan - Assessment and Plan (Free Text) Assessment: 37M POD#2 s/p lap appy Plan: OOBTC Ambulate cont regular diet Cont IV Abx Encourage IS use Ok for d/c home today from surgical standpoint To be d/c'd on Augmentin x 1 wk To Follow up with Dr. Serna in 10days - 2 weeks DW attending Emma, PGY-2
[2018-07-26 07:21] LABS: HEMOGLOBIN 12.3 g/dL (12.0-18.0); MEAN CELL VOLUME 83.5 fl (80.0-94.0); MEAN CORPUSCULAR HEMOGLOBIN 27.6 pg (27.0-31.0); RBC 4.48 Mil/uL (4.40-5.90); RED CELL DISTRIBUTION WIDTH 13.6 % (11.5-14.5); WHITE BLOOD COUNT 3.6 K/uL (4.8-10.8)
[2018-07-26 07:55] VITALS: TEMP 98.4
[2018-07-26 08:19] LABS: ALB/GLOB RATIO 1.4 (1.0-2.1); ALBUMIN 3.7 g/dL (3.5-5.0); ALT/SGPT 77 U/L (21-72); AST/SGOT 73 U/L (17-59); BLOOD UREA NITROGEN 8 mg/dl (9-20); CALCIUM 8.7 mg/dL (8.4-10.2); GFR NON-AFRICAN AMERICAN > 60
[2018-07-26 08:47] VITALS: BP 145/83; PULSE 59; RESP 20; O2SAT 97
[2018-07-26] MEDS: Oxycodone/Acetaminophen 5/325 mg Tab PO PRN (08:51)
--- NOTE | 2018-07-26 14:49 | CP.PCM.DIS ---
Provider - Provider Date of Admission: 07/24/18 01:38 Attending physician: MD Dirk Coronado MD Time Spent in preparation of Discharge (in minutes): 30 Hospital Course - Lab Results Lab Results: Micro Results 07/23/18 23:30 Blood Blood Culture - Preliminary NO GROWTH AFTER 48 HOURS 07/23/18 23:10 Blood Blood Culture - Preliminary NO GROWTH AFTER 48 HOURS Most Recent Lab Values WBC 3.6 K/uL (4.8-10.8) L D 07/26/18 05:30 RBC 4.48 Mil/uL (4.40-5.90) 07/26/18 05:30 Hgb 12.3 g/dL (12.0-18.0) 07/26/18 05:30 Hct 37.4 % (35.0-51.0) 07/26/18 05:30 MCV 83.5 fl (80.0-94.0) 07/26/18 05:30 MCH 27.6 pg (27.0-31.0) 07/26/18 05:30 MCHC 33.0 g/dL (33.0-37.0) 07/26/18 05:30 RDW 13.6 % (11.5-14.5) 07/26/18 05:30 Plt Count 184 K/uL (130-400) 07/26/18 05:30 MPV 8.9 fl (7.2-11.7) 07/25/18 05:30 Neut % (Auto) 88.1 % (50.0-75.0) H 07/25/18 05:30 Lymph % (Auto) 6.0 % (20.0-40.0) L 07/25/18 05:30 [place] % (Auto) 5.6 % (0.0-10.0) 07/25/18 05:30 Eos % (Auto) 0.0 % (0.0-4.0) 07/25/18 05:30 Baso % (Auto) 0.3 % (0.0-2.0) 07/25/18 05:30 Neut # (Auto) 6.5 K/uL (1.8-7.0) 07/25/18 05:30 Lymph # (Auto) 0.4 K/uL (1.0-4.3) L 07/25/18 05:30 [place] # (Auto) 0.4 K/uL (0.0-0.8) 07/25/18 05:30 Eos # (Auto) 0.0 K/uL (0.0-0.7) 07/25/18 05:30 Baso # (Auto) 0.0 K/uL (0.0-0.2) 07/25/18 05:30 Neutrophils % (Manual) 87 % (42-75) H 07/25/18 05:30 Lymphocytes % (Manual) 7 % (20-50) L 07/25/18 05:30 Monocytes % (Manual) 6 % (0-10) 07/25/18 05:30 Toxic Granulation Present 07/25/18 05:30 Platelet Estimate Normal (NORMAL) 07/25/18 05:30 Large Platelets Present 07/25/18 05:30 RBC Morphology Normal (NORMAL) 07/25/18 05:30 PT 12.5 Seconds (9.8-13.1) 07/24/18 05:25 INR 1.1 07/24/18 05:25 APTT 35.0 Seconds (25.6-37.1) 07/24/18 05:25 Sodium 141 mmol/l (132-148) 07/26/18 05:30 Potassium 3.9 MMOL/L (3.6-5.0) 07/26/18 05:30 Chloride 107 mmol/L (98-107) 07/26/18 05:30 Carbon Dioxide 30 mmol/L (22-30) 07/26/18 05:30 Anion Gap 8 (10-20) L 07/26/18 05:30 BUN 8 mg/dl (9-20) L 07/26/18 05:30 Creatinine 1.0 mg/dl (0.8-1.5) 07/26/18 05:30 Est GFR ( Amer) > 60 07/26/18 05:30 Est GFR (Non-Af Amer) > 60 07/26/18 05:30 Random Glucose 100 mg/dL (75-110) 07/26/18 05:30 Calcium 8.7 mg/dL (8.4-10.2) 07/26/18 05:30 Total Bilirubin 0.9 mg/dl (0.2-1.3) 07/26/18 05:30 AST 73 U/L (17-59) H D 07/26/18 05:30 ALT 77 U/L (21-72) H D 07/26/18 05:30 Alkaline Phosphatase 57 U/L (38-126) 07/26/18 05:30 Total Protein 6.2 G/DL (6.3-8.2) L 07/26/18 05:30 Albumin 3.7 g/dL (3.5-5.0) 07/26/18 05:30 Globulin 2.6 gm/dL (2.2-3.9) 07/26/18 05:30 Albumin/Globulin Ratio 1.4 (1.0-2.1) 07/26/18 05:30 Lipase 54 U/L (23-300) 07/23/18 23:10 - Hospital Course Hospital Course: s/p appendectomy Discharge Exam - Head Exam Head Exam: ATRAUMATIC, NORMAL INSPECTION, NORMOCEPHALIC - Eye Exam Eye Exam: Normal appearance Pupil Exam: NORMAL ACCOMODATION - ENT Exam ENT Exam: Mucous Membranes Moist - Neck Exam Neck exam: Full Rom - Respiratory Exam Respiratory Exam: Clear to PA & Lateral, NORMAL BREATHING PATTERN, UNREMARKABLE - Cardiovascular Exam Cardiovascular Exam: REGULAR RHYTHM, +S4 - GI/Abdominal Exam GI & Abdominal Exam: Normal Bowel Sounds, Soft - Neurological Exam Neurological exam: Alert Discharge Plan - Discharge Medications Prescriptions: Amoxicillin/Clavulanate [Augmentin 875 MG-125 MG] 1 tab PO BID #14 tab Docusate Sodium [Colace Clear] 50 mg PO BID PRN #20 capsule PRN Reason: Constipation - Follow Up Plan Condition: FAIR Disposition: HOME/ ROUTINE Instructions: Appendicitis, Adult (DC), Appendectomy, Laparoscopic Surgery (DC) Additional Instructions: follow up with primary MD in 1 week Please follow up with Dr. Serna in 10 days to 2 weeks after discharge You are being discharged on antibiotics, please take as directed Your surgical incisions have a special glue over them, do not remove- it will fall off on it's own Ok to shower, washing gently with soap and water over glue Do not take a bath, get into a hot tub or go swimming until the glue has fallen off NO heavy lifting for 4-6 weeks Ok to walk and do light jogging Ok to resume normal diet Watch out for constipation- if needed, take a stool softener, do not strain If you take opioid pain medication, take a stool softener with it as well Referrals: Demetrio Garnett MD [Staff Provider] - Ricardo Serna MD [Staff Provider] -
== END 2018-07-26 15:18 | disposition home or self-care (01) | DRG 343 ==
LOC: H.ER 21:56 → H.ERHOLD 07-24 01:38 → H.MEDSURG1 07-24 03:50
PROVIDERS: ADMIT Family Medicine; ATTEND Family Medicine
PROC: 0DTJ4ZZ Resection of Appendix, Percutaneous Endoscopic Approach (ICD-10-PCS; principal; 2018-07-24 12:30)
DX: K35.80 Unspecified acute appendicitis (principal); Z82.49 Family history of ischemic heart disease and other diseases of the circulatory system; Z87.891 Personal history of nicotine dependence; I10 Essential (primary) hypertension; R50.9 Fever, unspecified